=== PATIENT | male | born 1995 | race Two or more races ===

== ENCOUNTER 2023-08-10 11:43 | Emergency (ER) | payer OTHER ==
[2023-08-10 12:23] LABS: BILIRUBIN,URINE NEGATIVE (NEGATIVE); GLUCOSE, URINE (UA) NEGATIVE (NEGATIVE); KETONES,URINE (UA) NEGATIVE (NEGATIVE); LEUKOCYTE ESTERASE, URINE NEGATIVE (NEGATIVE); NITRITE,URINE NEGATIVE (NEGATIVE); OCCULT BLOOD,URINE NEGATIVE (NEGATIVE); PH,URINE 7.5 PH (5.0-7.5); PROTEIN,URINE NEGATIVE (NEGATIVE); UROBILINOGEN,URINE 0.2 (NORMAL) E.U./dL (NORMAL)
[2023-08-10 12:24] LABS: CLARITY,URINE CLEAR (CLEAR)
[2023-08-10 12:32] LABS: BASOPHILS # (AUTO) 0.1 10^3/uL (0.0-0.1); BASOPHILS % (AUTO) 0.8 %; EOSINOPHILS # (AUTO) 0.1 10^3/uL (0.0-0.7); EOSINOPHILS % (AUTO) 0.5 %; HCT - HEMATOCRIT 47.7 % (42.0-52.0); HGB - HEMOGLOBIN 16.4 g/dL (14.0-18.0); LYMPHOCYTES # (AUTO) 0.7 10^3/uL (1.5-3.5); LYMPHOCYTES % (AUTO) 5.6 %; MEAN CORPUSCULAR HEMOGLOBIN 30.1 pg (27.0-31.0); MEAN CORPUSCULAR HGB CONC 34.4 g/dL (32.0-36.0); MEAN CORPUSCULAR VOLUME 87.5 fL (80.0-94.0); MEAN PLATELET VOLUME 9.4 fL (7.4-11.4); MONOCYTES % (AUTO) 7.4 %; NEUTROPHILS # (AUTO) 10.9 10^3/uL (1.5-6.6); NEUTROPHILS % (AUTO) 85.3 %; PLT - PLATELET COUNT 333 10^3/uL (130-450); RED BLOOD COUNT 5.45 10^6/uL (4.70-6.10); RED CELL DISTRIBUTION WIDTH 11.8 % (12.0-15.0); WHITE BLOOD COUNT 12.8 x10^3/uL (4.8-10.8)
[2023-08-10] MEDS ORDERED: SODIUM CHLORIDE 0.9% 1,000 ML IV STA (12:40)
[2023-08-10] MEDS ORDERED: KETOROLAC 15 MG/ML VIAL IVP STA (12:40)
[2023-08-10 12:58] LABS: ALBUMIN 5.1 g/dL (3.2-5.5); ALBUMIN/GLOBULIN RATIO 1.8 (1.0-2.2); ALKALINE PHOSPHATASE 94 IU/L (42-121); ALT ALANINE AMINOTRANSFERASE 37 IU/L (10-60); AST ASPARTATE AMINOTRANSFERASE 19 IU/L (10-42); BILIRUBIN,TOTAL 0.6 mg/dL (0.2-1.0); BUN - BLOOD UREA NITROGEN 14 mg/dL (6-20); CALCIUM 10.4 mg/dL (8.5-10.3); CARBON DIOXIDE - CO2 25 mmol/L (21-32); CHLORIDE 104 mmol/L (101-111); CREATININE 1.1 mg/dL (0.6-1.3); GFR - MDRD 82 (>89); GLUCOSE 113 mg/dL (74-104); POTASSIUM 3.8 mmol/L (3.5-4.5); SODIUM 138 mmol/L (135-145); TOTAL PROTEIN 7.9 g/dL (6.4-8.9)
[2023-08-10 13:02] LABS: LIPASE < 10 U/L (11-82)
[2023-08-10] MEDS: SODIUM CHLORIDE 0.9% 1,000 ML IV STA ×2 (14:05→18:44)
[2023-08-10] MEDS: KETOROLAC 15 MG/ML VIAL IVP STA ×2 (14:08→18:44)
[2023-08-10] MEDS: ONDANSETRON 4 MG/2 ML VIAL IVP STA (14:18)
[2023-08-10] MEDS: HYDROmorphone 0.5 MG/0.5 ML SYRINGE IVP STA (14:18)
[2023-08-10] MEDS ORDERED: IOVERSOL 320 100 ML VIAL IVP ONE (16:34)
[2023-08-10] MEDS: IOVERSOL 320 100 ML VIAL IVP ONE (17:58)
--- NOTE | 2023-08-10 18:04 | ED Physician Documentation ---
PD HPI ABD PAIN - Stated complaint Stated Complaint: ABD PX,CHILLS,NAUSEA - Chief complaint Chief Complaint: Abd Pain - History obtained from History obtained from: Patient - History of Present Illness Timing - onset: Last night, Yesterday Timing - duration: Hours (24) Timing - details: Gradual onset, Still present, Waxing and waning (waves of cramping pain associated with diarrhea. pain mainly central but then migrated to RLQ more.) Quality: Cramping, Aching, Pain Location: Periumbilical Radiation: Lower back Improved by: No: BM Worsened by: Eating Associated symptoms: Fever (temp to 101 last night), Nausea, Vomiting, Diarrhea (several times). No: Constipation Similar symptoms before: Has not had sx before Review of Systems Constitutional: reports: Fever Nose: denies: Rhinorrhea / runny nose, Congestion Throat: denies: Sore throat Respiratory: denies: Cough GI: reports: Abdominal Pain, Nausea, Vomiting, Diarrhea. denies: Abdominal Swelling, Constipation, Bloody / black stool : denies: Dysuria, Frequency PD PAST MEDICAL HISTORY - Past Medical History Past Medical History: Yes Cardiovascular: None Respiratory: Asthma Neuro: Migraines Endocrine/Autoimmune: None GI: None : None HEENT: None Psych: None Musculoskeletal: None Derm: None - Past Surgical History Past Surgical History: No - Present Medications Home Medications: Ambulatory Orders Medication Instructions Recorded Confirmed No Known Home Medications 08/10/23 08/10/23 - Allergies Allergies/Adverse Reactions: Allergies Allergy/AdvReac Type Severity Reaction Status Date / Time Penicillins Allergy Rash Verified 08/10/23 12:06 - Social History Does the pt smoke?: No Smoking Status: Never smoker Does the pt drink ETOH?: Yes Does the pt have substance abuse?: No - Immunizations Immunizations are current?: Yes - POLST Patient has POLST: No PD ED PE NORMAL - Vitals Vital signs reviewed: Yes - General General: Alert and oriented X 3, Well developed/nourished, Other (appears in pain with general to lower abd pain/cramps. ) - Neck Neck: Supple, no meningeal sign, No adenopathy - Cardiac Cardiac: No murmur. No: RRR (tachycardic to 135. regular. ) - Respiratory Respiratory: Clear bilaterally - Abdomen Abdomen: Soft, Non distended, Other (tender centrally to lower, more right than left, with guarding and rebound. Not distended. ). No: Normal bowel sounds (increased) - Male Male : Deferred - Rectal Rectal: Deferred - Back Back: No CVA TTP - Derm Derm: Normal color Results - Vitals Vitals: Vital Signs - 24 hr 08/10/23 08/10/23 08/10/23 12:07 14:12 17:20 Temperature 37.7 C Heart Rate 135 H 115 H 110 H Respiratory 20 18 20 Rate Blood Pressure 103/55 L 126/70 114/58 L O2 Saturation 100 97 100 08/10/23 08/10/23 19:44 20:38 Temperature 36.9 C Heart Rate 116 H Respiratory 16 16 Rate Blood Pressure 97/50 L 105/52 L O2 Saturation 100 96 Oxygen O2 Source Room air - Labs Labs: Laboratory Tests 08/10/23 08/10/23 08/10/23 12:07 12:27 12:27 WBC 12.8 H RBC 5.45 Hgb 16.4 Hct 47.7 MCV 87.5 MCH 30.1 MCHC 34.4 RDW 11.8 L Plt Count 333 MPV 9.4 Neut # (Auto) 10.9 H Lymph # (Auto) 0.7 L [place] # (Auto) 1.0 Eos # (Auto) 0.1 Baso # (Auto) 0.1 Absolute Nucleated RBC 0.00 Nucleated RBC % 0.0 Sodium 138 Potassium 3.8 Chloride 104 Carbon Dioxide 25 Anion Gap 9.0 BUN 14 Creatinine 1.1 Estimated GFR (MDRD) 82 L Glucose 113 H Calcium 10.4 H Total Bilirubin 0.6 AST 19 ALT 37 Alkaline Phosphatase 94 Total Protein 7.9 Albumin 5.1 Globulin 2.8 Albumin/Globulin Ratio 1.8 Lipase < 10 L Urine Color YELLOW Urine Clarity CLEAR Urine pH 7.5 Ur Specific [place] 1.020 Urine Protein NEGATIVE Urine Glucose (UA) NEGATIVE Urine Ketones NEGATIVE Urine Occult Blood NEGATIVE Urine Nitrite NEGATIVE Urine Bilirubin NEGATIVE Urine Urobilinogen 0.2 (NORMAL) Ur Leukocyte Esterase NEGATIVE Ur Microscopic Review NOT INDICATED Urine Culture Comments NOT INDICATED PD Medical Decision Making - ED course Complexity details: reviewed results (in waiting room awhile then to room and got IV fluids and pain meds, but getting CT was couple of hours due to ER volume, and still awaiting CT read after 2 hours, when change of shift. He was more comfortable for most of that time. Repeat pain meds after few hours. Care to oncoming EDMD. ), re-evaluated patient (more comforotable after initial IV fluids/meds of Zofran toradol and dilaudid. Given IV fluids. ), considered differential (general/central moving toward lower abd cramping pain and tender with vomiting and dairrhea. Consider viral GE but with most tender RLQ, would consider appendix/colitis/etc. ), d/w patient Departure - Departure Disposition: 01 Home, Self Care Clinical Impression: Abdominal pain, Vomiting, Diarrhea Condition: Stable Record reviewed to determine appropriate education?: Yes Instructions: ED Abdominal Pain Unkn Cause Male Comments: Your CT scan looks good. There is no evidence of appendicitis or any other infectious or surgical condition going on. There are many reasons for transient abdominal pain and most of the time, pain will blow over on its own. However, if you notice that your pain is getting worse and worse, or if you begin having vomiting to the point where you are unable to hold down even fluids, or if you develop fevers and worsening abdominal pain, please return to the emergency department for reevaluation. Otherwise, please get rest and clear liquids and follow-up with your primary doctor as needed. Forms: PCP List, Activity restrictions Discharge Date/Time: 08/10/23 20:39
[2023-08-10] MEDS: HYDROmorphone 1 MG/ML CARPUJECT IVP STA (18:44)
--- NOTE | 2023-08-10 19:16 | CT Report ---
PROCEDURE: Abdomen/Pelvis W INDICATIONS: mid to lower abd pain, ? Appendix CONTRAST: Optiray 320- 100ml TECHNIQUE: After the administration of intravenous contrast, a CT scan of the abdomen and pelvis was performed. Images were recorded and evaluated at appropriate window settings. Reformats: coronal and sagittal. F or radiation dose reduction, the following was used: automated exposure control, adjustment of mA and /or kV according to patient size. COMPARISON: None. FINDINGS: Image quality: Diagnostic. Lower chest: Bibasilar atelectasis. Liver: No solid mass. Gallbladder and biliary tree: No radiopaque stones or wall thickening. No biliary dilation. Spleen: No splenomegaly. Pancreas: No pancreatic ductal dilation. Adrenals: No adrenal nodule. Kidneys and ureters: No hydronephrosis. No renal cystic lesion which requires follow up. No solid mas s. Stomach, bowel and peritoneum: No bowel distension. No pathologic free fluid. Normal appendix, () . Lymph nodes: No central or retroperitoneal adenopathy. Vessels: No infrarenal aortic aneurysm. PELVIS Reproductive organs: Unremarkable. Bladder: No abnormal wall thickening, accounting for underdistention. Pelvic lymph nodes: No pelvic adenopathy by size criteria. Bones: No aggressive osseous abnormality. Other: No significant ventral or inguinal hernia. IMPRESSION: No acute abnormality. No appendicitis. No free fluid. Reviewed by: Romario Regan MD on 08/10/2023 7:15 PM [facility] Approved by: Romario Regan MD on 08/10/2023 7:15 PM PST Station ID: [id number]
--- NOTE | 2023-08-10 20:02 | ED Physician Documentation ---
ED Addendum - Addendum Addendum: 08/10/23 20:01 The patient was signed out to me at change of shift, pending CT results after presenting to the emergency department with abdominal pain and some nausea. The patient had been stable in the emergency department, but found to have a mild elevation of white blood cell count at 12.8. He was afebrile here. The patient remained stable throughout his stay in the emergency department. His CT scan result ultimately came back and was negative. We discussed symptomatic man agement at home, as well as the usual indications for follow-up and return. Final impression: 1. Abdominal Pain Disposition: Home in stable and improved condition.
[2023-08-10 20:43] VITALS: BP 105/52; O2SAT 96
== END 2023-08-10 20:39 | disposition home or self-care (01) ==
LOC: ED 11:43
DX: R10.31 Right lower quadrant pain (principal); R11.2 Nausea with vomiting, unspecified; R19.7 Diarrhea, unspecified
CPT/HCPCS: 36415; 74177; 80053; 81003; 83690; 85025; 96361; 96374; 96375; 96376; 99283; 99284; J1170; Q9967; 81001; 87086